=== PATIENT | female | born 1995 | race Caucasian/White ===

== ENCOUNTER 2020-09-25 13:08 | Inpatient (IN) ==
[2020-09-25] MEDS ORDERED: MEPERIDINE 50 MG/1 ML VIAL IV ONE (13:37)
[2020-09-25] MEDS ORDERED: LACTATED RINGERS 1,000 ML IV ONE ×2 (13:37→19:26)
[2020-09-25] MEDS ORDERED: ONDANSETRON 4 MG/2 ML VIAL IV ONE (13:37)
[2020-09-25 13:44] LABS: Bacteria,Urine Occasional /HPF (Few); Bilirubin,Urine Negative (Negative); Blood, Urine Negative (Negative); Glucose,Urine (UA) Negative (Negative); Ketones,Urine Negative (Negative); Nitrite,Urine Negative (Negative); Protein,Urine Negative; RBC,Urine <1 /HPF (0-4); Squamous Epithelial Cell,Urine Occasional /HPF (0-10); Urine Appearance CLEAR (Clear); Urine Color Straw (Yellow); Urine Specific Gravity 1.002 (1.001-1.035); Urine Urobilinogen < 2.0 EU/DL (0.2-1.0); WBC,Urine <1 /HPF (0-6)
[2020-09-25] MEDS: TERBUTALINE 1 MG/1 ML VIAL SUBCUT PRN ×2 (14:56→15:36)
[2020-09-25] MEDS ORDERED: ONDANSETRON 4 MG/2 ML VIAL IV PRN ×2 (16:56→19:09)
[2020-09-25] MEDS ORDERED: TERBUTALINE 1 MG/1 ML VIAL SUBCUT ONE (16:56)
[2020-09-25] MEDS ORDERED: ceFAZolin 3,000 MG in SYRINGE 1 EACH IV ONE (16:59)
[2020-09-25] MEDS ORDERED: CITRIC ACID/SODIUM CITRATE 30 ML UDCUP PO ONE (16:59)
[2020-09-25] MEDS ORDERED: FAMOTIDINE 20 MG/2 ML VIAL IV ONE (16:59)
[2020-09-25] MEDS ORDERED: LACTATED RINGERS 1,000 ML IV SCH ×2 (17:00→19:30)
[2020-09-25] MEDS ORDERED: OXYTOCIN 10 UNIT/ML VIAL IM ONE (17:08)
[2020-09-25] MEDS ORDERED: OXYTOCIN/LR 30 UNIT/1,000 ML BAG IV ONE (17:08)
[2020-09-25 17:19] LABS: Basophils % 0.1 % (0.0-0.8); Hematocrit 37.8 VOL% (35.7-47.0); Hemoglobin 12.8 GM/DL (12.0-16.0); Immature Granulocytes % 0.3 %; Immature Granulocytes Absolute 0.03 #; Lymphocytes % 9.2 % (21.3-54.2); Mean Corpuscular HGB Conc 33.9 GM/DL (32-36); Mean Corpuscular Volume 85.3 FL (87-102); Mean Platelet Volume 9.9 FL (9.6-12.0); Neutrophils % 85.4 % (38.7-73.9); Platelet Count 225 T/CUMM (130-400); Red Blood Count 4.43 MC/CUMM (3.8-5.5); Red Cell Distribution Width 13.2 % (9.3-17.3); White Blood Count 10.5 T/CUMM (4-12)
[2020-09-25] MEDS ORDERED: METHYLERGONOVINE 0.2 MG/1 ML AMP ONE (17:20)
[2020-09-25] MEDS ORDERED: miSOPROStoL 200 MCG TABLET ONE (17:20)
[2020-09-25] MEDS ORDERED: CARBOPROST TROMETHAMINE 250 MCG/ML AMP IM ONE (17:21)
[2020-09-25 17:44] LABS: Alanine Aminotransferase 14 U/L (13-56); Albumin 2.6 G/DL (3.4-5.0); Alkaline Phosphatase 105 U/L (45-117); Aspartate Amino Transferase 11 U/L (0-37); Bilirubin,Total < 0.39 MG/DL (0.2-1.0); Blood Urea Nitrogen 6 MG/DL (7-18); Calcium 8.8 MG/DL (8.5-10.1); Estimated Glom Filtration Rate 164 ML/MIN; Glucose 99 MG/DL (74-106); Osmolality,Calculated 276.4 MOS/KG (273-304); Total Protein 6.9 G/DL (6.4-8.3)
[2020-09-25] MEDS ORDERED: fentaNYL 100 MCG/2 ML VIAL ONE ×2 (17:57→18:57)
[2020-09-25 18:58] LABS: Cord Venous Blood HCO3 21.5 MMOL/L; Cord Venous Blood PCO2 40.2 MMHG; Cord Venous Blood PO2 38.8
[2020-09-25] MEDS ORDERED: propofoL 200 MG/20 ML VIAL IV ONE (19:01)
[2020-09-25] MEDS ORDERED: LIDOCAINE 2% 5 ML VIAL ONE (19:01)
[2020-09-25] MEDS ORDERED: ONDANSETRON 4 MG/2 ML VIAL ONE (19:01)
[2020-09-25] MEDS ORDERED: SUCCINYLCHOLINE 200 MG/10 ML VIAL ONE (19:01)
[2020-09-25] MEDS ORDERED: PHENYLEPHRINE 1 MG/10 ML SYRINGE IV ONE (19:01)
[2020-09-25 19:08] LABS: Bilirubin,Urine Negative (Negative); Blood, Urine Negative (Negative); Glucose,Urine (UA) Negative (Negative); Ketones,Urine 20 mg/dL (Negative); Mucus,Urine Occasional /LPF (Occasional); Nitrite,Urine Negative (Negative); Protein,Urine Negative; RBC,Urine <1 /HPF (0-4); Squamous Epithelial Cell,Urine Occasional /HPF (0-10); Urine Appearance CLEAR (Clear); Urine Color Yellow (Yellow); Urine Specific Gravity 1.006 (1.001-1.035); Urine Urobilinogen < 2.0 EU/DL (0.2-1.0); WBC,Urine 1 /HPF (0-6)
[2020-09-25] MEDS ORDERED: SIMETHICONE CHEW 80 MG TABLET PO PRN (19:09)
[2020-09-25] MEDS ORDERED: MAGNESIUM HYDROXIDE SUSP 30 ML UDCUP PO PRN (19:09)
[2020-09-25] MEDS ORDERED: RHO(D) IMMUNE GLOBULIN 300 MCG SYRINGE IM ONE (19:09)
[2020-09-25] MEDS ORDERED: ACETAMINOPHEN 325 MG TABLET PO PRN (19:09)
[2020-09-25] MEDS ORDERED: OXYTOCIN/LR 20 UNIT/1,000 ML BAG IV ONE (19:09)
[2020-09-25] MEDS ORDERED: HYDROmorphone 2 MG/1 ML VIAL IV PRN (19:18)
[2020-09-25] MEDS ORDERED: ACETAMINOPHEN INJ 1,000 MG in PREMIX 1 EACH IV ONE (20:30)
[2020-09-26 03:38] LABS: Basophils % 0.3 % (0.0-0.8); Eosinophils % 0.3 % (0.00-10.9); Hematocrit 30.4 VOL% (35.7-47.0); Hemoglobin 10.4 GM/DL (12.0-16.0); Immature Granulocytes % 0.3 %; Immature Granulocytes Absolute 0.02 #; Lymphocytes # 1.5 10*3/uL (1.4-4.0); Lymphocytes % 18.6 % (21.3-54.2); Mean Corpuscular HGB Conc 34.2 GM/DL (32-36); Mean Corpuscular Volume 83.5 FL (87-102); Monocytes % 6.8 % (1.7-12.7); Neutrophils % 73.7 % (38.7-73.9); Platelet Count 187 T/CUMM (130-400); Red Blood Count 3.64 MC/CUMM (3.8-5.5); Red Cell Distribution Width 13.3 % (9.3-17.3)
[2020-09-26] MEDS: ceFAZolin 1,000 MG in SYRINGE 1 EACH IV SCH ×2 (04:42→11:36)
[2020-09-26] MEDS: DOCUSATE SODIUM 100 MG CAPSULE PO SCH ×3 (06:54→21:32)
[2020-09-26] MEDS: MULTIVITAMIN (PRENATAL) TABLET PO SCH (10:49)
[2020-09-26] MEDS: IBUPROFEN 800 MG TABLET PO PRN ×2 (10:50→21:32)
[2020-09-26] MEDS ORDERED: ceFAZolin 1,000 MG in SYRINGE 1 EACH IV ONE (10:57)
[2020-09-26 11:04] LABS: Basophils % 0.2 % (0.0-0.8); Eosinophils % 0.2 % (0.00-10.9); Hematocrit 31.4 VOL% (35.7-47.0); Hemoglobin 10.8 GM/DL (12.0-16.0); Immature Granulocytes % 0.4 %; Immature Granulocytes Absolute 0.03 #; Lymphocytes # 1.2 10*3/uL (1.4-4.0); Lymphocytes % 13.8 % (21.3-54.2); Mean Corpuscular HGB Conc 34.4 GM/DL (32-36); Mean Corpuscular Volume 84.4 FL (87-102); Mean Platelet Volume 9.4 FL (9.6-12.0); Monocytes % 7.5 % (1.7-12.7); Neutrophils % 77.9 % (38.7-73.9); Platelet Count 191 T/CUMM (130-400); Red Blood Count 3.72 MC/CUMM (3.8-5.5); Red Cell Distribution Width 13.4 % (9.3-17.3); White Blood Count 8.3 T/CUMM (4-12)
[2020-09-27] MEDS: DOCUSATE SODIUM 100 MG CAPSULE PO SCH (09:56)
[2020-09-27] MEDS: MULTIVITAMIN (PRENATAL) TABLET PO SCH (09:56)
[2020-09-27] MEDS ORDERED: DIPH/TET/ACEL PERT BOOSTER VACCINE 0.5 ML VIAL IM ONE (11:33)
[2020-09-27 12:45] VITALS: BP 113/65
== END 2020-09-27 12:55 | disposition home or self-care (01) | DRG 788 ==
LOC: N.LDOUT 13:08 → N.LD 13:14 → N.OB 22:35
PROVIDERS: ADMIT Obstetrics & Gynecology; ATTEND Obstetrics & Gynecology
PROC: LDCSECT (ICD-10-PCS; 2020-09-25 19:00)